=== PATIENT | female | born 1955 | race Caucasian/White ===

== ENCOUNTER 2023-01-05 18:05 | Inpatient (IN) | payer OTHER ==
[2023-01-05] MEDS ORDERED: Dextrose 50% Abboject 50 ML SYRINGE SLOW IVP PRN (18:45)
[2023-01-05] MEDS ORDERED: Sodium Chloride 0.9% 1,000 ML IV SCH (18:45)
[2023-01-05] MEDS ORDERED: Glucagon 1 MG/ML KIT IM PRN (18:45)
[2023-01-05] MEDS ORDERED: HumaLOG 300 UNITS/3 ML VIAL SC PRN (18:45)
[2023-01-05] MEDS ORDERED: Dextrose 5% in Water 1,000 ML IV PRN (18:45)
[2023-01-05] MEDS: Atorvastatin Calcium 40 MG TAB PO SCH (22:16)
[2023-01-05] MEDS ORDERED: FLU VACC QS2023(65UP)/MF59C/PF 60 MCG/0.5 ML SYRINGE IM ONE (23:45)
[2023-01-06 00:26] VITALS: BMI 26.3
[2023-01-06 05:57] LABS: #Basophils 0.1 10x3/uL (0.0-0.2); #Eosinphils 0.1 10x3/uL (0.0-0.5); #Monocytes 0.4 10x3/uL (0.0-1.1); #Neutrophils 3.9 10x3/uL (1.5-8.4); %Basophils 1.2 % (0.0-2.0); %Eosinophils 1.5 % (0.0-6.0); %Lymphocytes 25.7 % (18.0-47.0); %Monocytes 6.4 % (0.0-10.0); %Neutrophils 64.9 % (40.0-75.0); Hematocrit 33.8 % (34.9-44.5); Hemoglobin 11.6 g/dL (12.0-15.5); Mean Corpuscular HGB CONC 34.3 g/dL (32.0-36.0); Mean Corpuscular Hemoglobin 30.3 pg (27.0-33.0); Mean Corpuscular Volume 88.3 fl (81.6-98.3); Platelet Count 256 10x3/uL (150-450); RBC Distribution Width 14.5 % (11.5-14.5); Red Blood Cell (RBC) Count 3.83 10x6/uL (3.90-5.03)
[2023-01-06 06:07] LABS: Anion Gap 12 mmol/L (10-20); BUN (Urea Nitrogen) 5 mg/dL (9.8-20.1); Calc. Creatinine Clearance 102 mL/min (70-130); Calcium 7.7 mg/dL (7.8-10.44); Carbon Dioxide 23 mmol/L (23-31); Chloride 110 mmol/L (98-107); Estimated GFR 99; Glucose 78 mg/dL (80-115); Sodium 142 mmol/L (136-145)
[2023-01-06 06:11] LABS: Potassium 2.5 mmol/L (3.5-5.1)
[2023-01-06] MEDS: cefTRIAXone\\ROCEPHIN 1 GM in Sodium Chloride 0.9% 100 ML IVPB SCH (08:04)
[2023-01-06] MEDS ORDERED: Electrolyte Replacement Protocol 1 EACH FS PRN (08:04)
[2023-01-06] MEDS: Acetaminophen 325 MG TAB PO PRN ×2 (08:30→15:02)
[2023-01-06] MEDS: Clopidogrel Bisulfate 75 MG TAB PO SCH (08:31)
[2023-01-06] MEDS: Aspirin Chewable 81 MG TAB PO SCH (08:31)
[2023-01-06] MEDS: Potassium Chloride 20 MEQ TAB PO SCH ×2 (08:31→15:02)
[2023-01-06] MEDS: Ibuprofen 600 MG TAB PO PRN (11:02)
[2023-01-06 13:11] LABS: Hemoglobin A1c 4.9 % (4.0-6.0)
[2023-01-06] MEDS ORDERED: Lorazepam 0.5 MG TAB PO PRN (14:35)
[2023-01-06] MEDS: metroNIDAZOLE 500 MG TAB PO SCH ×2 (15:03→20:58)
[2023-01-06 18:10] LABS: Magnesium 1.1 mg/dL (1.6-2.6); Potassium 3.4 mmol/L (3.5-5.1)
[2023-01-06] MEDS ORDERED: Potassium Chloride 20 MEQ TAB PO SCH (20:30)
[2023-01-06] MEDS: Atorvastatin Calcium 40 MG TAB PO SCH (20:58)
[2023-01-06] MEDS: Gabapentin 300 MG CAP PO SCH (20:58)
[2023-01-06] MEDS: Magnesium 2 GM/50 ML(in water) 2 GM in Premix 1 BAG IVPB SCH ×2 (20:59→22:30)
[2023-01-07] MEDS: cefTRIAXone\\ROCEPHIN 1 GM in Sodium Chloride 0.9% 100 ML IVPB SCH (06:06)
[2023-01-07 06:09] LABS: #Basophils 0.1 10x3/uL (0.0-0.2); #Eosinphils 0.1 10x3/uL (0.0-0.5); #Monocytes 0.3 10x3/uL (0.0-1.1); #Neutrophils 2.9 10x3/uL (1.5-8.4); %Basophils 1.2 % (0.0-2.0); %Lymphocytes 32.6 % (18.0-47.0); %Monocytes 6.9 % (0.0-10.0); %Neutrophils 58.1 % (40.0-75.0); Hemoglobin 11.7 g/dL (12.0-15.5); Mean Corpuscular HGB CONC 34.4 g/dL (32.0-36.0); Mean Corpuscular Hemoglobin 30.2 pg (27.0-33.0); Mean Corpuscular Volume 87.6 fl (81.6-98.3); Mean Platelet Volume 11.1 fl (7.4-10.4); Platelet Count 254 10x3/uL (150-450); Red Blood Cell (RBC) Count 3.88 10x6/uL (3.90-5.03); White Blood Cell (WBC) Count 4.9 10x3/uL (3.5-10.5)
[2023-01-07 06:21] LABS: Anion Gap 12 mmol/L (10-20); BUN (Urea Nitrogen) Less than 4 mg/dL (9.8-20.1); Calc. Creatinine Clearance 100 mL/min (70-130); Calcium 8.2 mg/dL (7.8-10.44); Carbon Dioxide 23 mmol/L (23-31); Chloride 109 mmol/L (98-107); Estimated GFR 99; Glucose 77 mg/dL (80-115); Magnesium 2.4 mg/dL (1.6-2.6); Phosphorus 2.2 mg/dL (2.3-4.7); Potassium 3.1 mmol/L (3.5-5.1); Sodium 141 mmol/L (136-145)
[2023-01-07] MEDS: Gabapentin 300 MG CAP PO SCH ×2 (08:26→20:56)
[2023-01-07] MEDS: Acetaminophen 325 MG TAB PO PRN ×3 (08:27→20:54)
[2023-01-07] MEDS: Clopidogrel Bisulfate 75 MG TAB PO SCH (08:27)
[2023-01-07] MEDS: metroNIDAZOLE 500 MG TAB PO SCH ×3 (08:28→20:55)
[2023-01-07] MEDS: Aspirin Chewable 81 MG TAB PO SCH (08:28)
[2023-01-07] MEDS: Lorazepam 1 MG TAB PO PRN ×2 (08:28→16:57)
[2023-01-07] MEDS ORDERED: Citalopram 20 MG TAB PO SCH (09:00)
[2023-01-07] MEDS ORDERED: Potassium Chloride 20 MEQ TAB PO SCH ×3 (09:00→21:00)
[2023-01-07] MEDS: Aspirin 81 mg Enteric Coated Tablet PO SCH (13:13)
[2023-01-07 14:14] LABS: Campy jejuni + coli by PCR Negative (Negative); STEC Shiga Toxin 1+2 Negative (Negative); Salmonella spp. by PCR Negative (Negative); Shigella spp + EIEC by PCR Negative (Negative)
[2023-01-07] MEDS ORDERED: Nicotine 21 MG PATCH TOP SCH (18:00)
[2023-01-07 18:35] LABS: Potassium 3.4 mmol/L (3.5-5.1)
[2023-01-07] MEDS: Atorvastatin Calcium 40 MG TAB PO SCH (20:56)
[2023-01-07] MEDS: Nicotine 21 MG PATCH TOP SCH (20:57)
[2023-01-08 05:26] LABS: Magnesium 1.7 mg/dL (1.6-2.6); Potassium 3.6 mmol/L (3.5-5.1)
[2023-01-08] MEDS: cefTRIAXone\\ROCEPHIN 1 GM in Sodium Chloride 0.9% 100 ML IVPB SCH (06:02)
[2023-01-08] MEDS: metroNIDAZOLE 500 MG TAB PO SCH ×3 (08:12→20:57)
[2023-01-08] MEDS: Clopidogrel Bisulfate 75 MG TAB PO SCH (08:12)
[2023-01-08] MEDS: Gabapentin 300 MG CAP PO SCH ×2 (08:13→20:56)
[2023-01-08] MEDS: Acetaminophen 325 MG TAB PO PRN ×2 (08:13→20:57)
[2023-01-08] MEDS: Aspirin Chewable 81 MG TAB PO SCH (08:13)
[2023-01-08] MEDS: Aspirin 81 mg Enteric Coated Tablet PO SCH (08:19)
[2023-01-08] MEDS ORDERED: Loperamide HCl 2 MG CAP PO PRN (08:58)
[2023-01-08] MEDS ORDERED: Magnesium 2 GM/50 ML(in water) 2 GM in Premix 1 BAG IVPB SCH (09:00)
[2023-01-08] MEDS: Lorazepam 1 MG TAB PO PRN ×2 (11:30→15:29)
[2023-01-08] MEDS: Atorvastatin Calcium 40 MG TAB PO SCH (20:56)
[2023-01-08] MEDS: Nicotine 21 MG PATCH TOP SCH (20:57)
[2023-01-09] MEDS: Acetaminophen 325 MG TAB PO PRN ×3 (03:23→15:30)
[2023-01-09] MEDS: Ibuprofen 600 MG TAB PO PRN (06:28)
[2023-01-09] MEDS: cefTRIAXone\\ROCEPHIN 1 GM in Sodium Chloride 0.9% 100 ML IVPB SCH (06:29)
[2023-01-09 06:36] LABS: Magnesium 1.6 mg/dL (1.6-2.6)
[2023-01-09] MEDS: Gabapentin 300 MG CAP PO SCH ×2 (07:56→20:40)
[2023-01-09] MEDS: Saccharomyces boulardii 250 MG CAP PO SCH (07:57)
[2023-01-09] MEDS: Aspirin Chewable 81 MG TAB PO SCH (07:57)
[2023-01-09] MEDS: metroNIDAZOLE 500 MG TAB PO SCH ×3 (07:57→20:40)
[2023-01-09] MEDS: Clopidogrel Bisulfate 75 MG TAB PO SCH (07:57)
[2023-01-09] MEDS: Lorazepam 1 MG TAB PO PRN ×2 (07:57→15:30)
[2023-01-09 08:15] LABS: #Basophils 0.1 10x3/uL (0.0-0.2); #Monocytes 0.3 10x3/uL (0.0-1.1); #Neutrophils 2.3 10x3/uL (1.5-8.4); %Basophils 1.4 % (0.0-2.0); %Eosinophils 0.7 % (0.0-6.0); %Lymphocytes 38.4 % (18.0-47.0); %Monocytes 5.9 % (0.0-10.0); %Neutrophils 53.4 % (40.0-75.0); Hematocrit 36.7 % (34.9-44.5); Hemoglobin 12.4 g/dL (12.0-15.5); Mean Corpuscular HGB CONC 33.8 g/dL (32.0-36.0); Mean Corpuscular Hemoglobin 29.9 pg (27.0-33.0); Mean Corpuscular Volume 88.4 fl (81.6-98.3); Mean Platelet Volume 10.9 fl (7.4-10.4); Platelet Count 249 10x3/uL (150-450); RBC Distribution Width 14.7 % (11.5-14.5); Red Blood Cell (RBC) Count 4.15 10x6/uL (3.90-5.03); White Blood Cell (WBC) Count 4.3 10x3/uL (3.5-10.5)
[2023-01-09 08:30] LABS: Anion Gap 13 mmol/L (10-20); BUN (Urea Nitrogen) Less than 4 mg/dL (9.8-20.1); Calc. Creatinine Clearance 89 mL/min (70-130); Calcium 8.3 mg/dL (7.8-10.44); Carbon Dioxide 25 mmol/L (23-31); Chloride 105 mmol/L (98-107); Estimated GFR 96; Glucose 97 mg/dL (80-115); Potassium 3.3 mmol/L (3.5-5.1); Sodium 140 mmol/L (136-145)
[2023-01-09] MEDS ORDERED: Magnesium 2 GM/50 ML(in water) 2 GM in Premix 1 BAG IVPB SCH (09:00)
[2023-01-09] MEDS ORDERED: Potassium Chloride 20 MEQ TAB PO SCH (09:00)
[2023-01-09] MEDS: Aspirin 81 mg Enteric Coated Tablet PO SCH (09:41)
[2023-01-09] MEDS: Cholestyramine/Aspartame 4 gm Packet PO SCH ×3 (10:25→21:27)
[2023-01-09 14:46] LABS: Potassium 3.4 mmol/L (3.5-5.1)
[2023-01-09] MEDS: Ciprofloxacin 500 MG TAB PO SCH (20:40)
[2023-01-09] MEDS: Atorvastatin Calcium 40 MG TAB PO SCH (20:40)
[2023-01-09] MEDS: Nicotine 21 MG PATCH TOP SCH (20:40)
[2023-01-10 05:20] LABS: Anion Gap 13 mmol/L (10-20); BUN (Urea Nitrogen) 4 mg/dL (9.8-20.1); Calc. Creatinine Clearance 91 mL/min (70-130); Calcium 8.6 mg/dL (7.8-10.44); Carbon Dioxide 23 mmol/L (23-31); Chloride 107 mmol/L (98-107); Estimated GFR 96; Glucose 101 mg/dL (80-115); Magnesium 1.6 mg/dL (1.6-2.6); Potassium 3.4 mmol/L (3.5-5.1); Sodium 140 mmol/L (136-145)
[2023-01-10] MEDS: Acetaminophen 325 MG TAB PO PRN (05:24)
[2023-01-10] MEDS: Ciprofloxacin 500 MG TAB PO SCH ×2 (05:25→20:35)
[2023-01-10 05:27] LABS: #Basophils 0.1 10x3/uL (0.0-0.2); #Eosinphils 0.1 10x3/uL (0.0-0.5); #Monocytes 0.3 10x3/uL (0.0-1.1); #Neutrophils 2.4 10x3/uL (1.5-8.4); %Basophils 1.2 % (0.0-2.0); %Eosinophils 1.4 % (0.0-6.0); %Lymphocytes 34.1 % (18.0-47.0); %Monocytes 6.5 % (0.0-10.0); %Neutrophils 56.6 % (40.0-75.0); Hematocrit 38.3 % (34.9-44.5); Hemoglobin 12.9 g/dL (12.0-15.5); Mean Corpuscular HGB CONC 33.7 g/dL (32.0-36.0); Mean Corpuscular Hemoglobin 29.4 pg (27.0-33.0); Mean Corpuscular Volume 87.2 fl (81.6-98.3); Mean Platelet Volume 10.7 fl (7.4-10.4); Platelet Count 253 10x3/uL (150-450); RBC Distribution Width 14.6 % (11.5-14.5); Red Blood Cell (RBC) Count 4.39 10x6/uL (3.90-5.03); White Blood Cell (WBC) Count 4.3 10x3/uL (3.5-10.5)
[2023-01-10] MEDS: Ibuprofen 600 MG TAB PO PRN (06:46)
[2023-01-10] MEDS ORDERED: Potassium Chloride 20 MEQ TAB PO SCH (08:00)
[2023-01-10] MEDS ORDERED: Ondansetron PF 4 MG/2 ML Vial IVP SCH (08:00)
[2023-01-10] MEDS: Magnesium 2 GM/50 ML BAG (IN WATER) ONE ×2 (08:43→08:52)
[2023-01-10] MEDS: Aspirin Chewable 81 MG TAB PO SCH (08:45)
[2023-01-10] MEDS: Saccharomyces boulardii 250 MG CAP PO SCH (08:45)
[2023-01-10] MEDS: metroNIDAZOLE 500 MG TAB PO SCH ×3 (08:45→20:35)
[2023-01-10] MEDS: Gabapentin 300 MG CAP PO SCH ×2 (08:45→20:35)
[2023-01-10] MEDS: Aspirin 81 mg Enteric Coated Tablet PO SCH (08:46)
[2023-01-10] MEDS: Clopidogrel Bisulfate 75 MG TAB PO SCH (08:46)
[2023-01-10] MEDS ORDERED: Magnesium 2 GM/50 ML(in water) 2 GM in Premix 1 BAG IVPB SCH (09:00)
[2023-01-10] MEDS: Lorazepam 1 MG TAB PO PRN ×2 (09:02→15:38)
[2023-01-10] MEDS: Cholestyramine/Aspartame 4 gm Packet PO SCH ×3 (10:00→21:28)
[2023-01-10] MEDS: Atorvastatin Calcium 40 MG TAB PO SCH (20:35)
[2023-01-10] MEDS: Nicotine 21 MG PATCH TOP SCH (20:39)
[2023-01-11] MEDS ORDERED: Ibuprofen 200 MG TAB PO SCH (00:45)
[2023-01-11] MEDS: Acetaminophen 325 MG TAB PO PRN (04:08)
[2023-01-11 05:57] LABS: #Basophils 0.1 10x3/uL (0.0-0.2); #Eosinphils 0.1 10x3/uL (0.0-0.5); #Monocytes 0.4 10x3/uL (0.0-1.1); #Neutrophils 4.2 10x3/uL (1.5-8.4); %Basophils 0.8 % (0.0-2.0); %Eosinophils 0.8 % (0.0-6.0); %Lymphocytes 25.4 % (18.0-47.0); %Monocytes 6.3 % (0.0-10.0); %Neutrophils 66.4 % (40.0-75.0); Hemoglobin 12.4 g/dL (12.0-15.5); Mean Corpuscular HGB CONC 33.5 g/dL (32.0-36.0); Mean Corpuscular Hemoglobin 29.7 pg (27.0-33.0); Mean Corpuscular Volume 88.5 fl (81.6-98.3); Platelet Count 217 10x3/uL (150-450); RBC Distribution Width 14.6 % (11.5-14.5); Red Blood Cell (RBC) Count 4.18 10x6/uL (3.90-5.03); White Blood Cell (WBC) Count 6.3 10x3/uL (3.5-10.5)
[2023-01-11 06:14] LABS: Anion Gap 9 mmol/L (10-20); BUN (Urea Nitrogen) 6 mg/dL (9.8-20.1); Calc. Creatinine Clearance 73 mL/min (70-130); Calcium 8.5 mg/dL (7.8-10.44); Carbon Dioxide 26 mmol/L (23-31); Chloride 109 mmol/L (98-107); Estimated GFR 80; Glucose 117 mg/dL (80-115); Magnesium 1.8 mg/dL (1.6-2.6); Potassium 4.1 mmol/L (3.5-5.1); Sodium 140 mmol/L (136-145)
[2023-01-11] MEDS: Ciprofloxacin 500 MG TAB PO SCH (06:23)
[2023-01-11] MEDS ORDERED: Magnesium 2 GM/50 ML(in water) 2 GM in Premix 1 BAG IVPB SCH (09:00)
[2023-01-11] MEDS: Gabapentin 300 MG CAP PO SCH (09:29)
[2023-01-11] MEDS: Aspirin 81 mg Enteric Coated Tablet PO SCH (09:29)
[2023-01-11] MEDS: Cholestyramine/Aspartame 4 gm Packet PO SCH (09:29)
[2023-01-11] MEDS: metroNIDAZOLE 500 MG TAB PO SCH (09:29)
[2023-01-11] MEDS: Clopidogrel Bisulfate 75 MG TAB PO SCH (09:30)
[2023-01-11] MEDS: Saccharomyces boulardii 250 MG CAP PO SCH (09:30)
[2023-01-11] MEDS: Aspirin Chewable 81 MG TAB PO SCH (09:30)
[2023-01-11] MEDS: Lorazepam 1 MG TAB PO PRN (09:34)
[2023-01-11 12:31] VITALS: BP 145/82; TEMP 99.2
== END 2023-01-11 13:00 | disposition home or self-care (01) | DRG 871 ==
LOC: CSHTELE 18:05 → INTOOBSV 18:05 → OBSVTOIN 01-07 09:00
PROVIDERS: ADMIT Internal Medicine; ATTEND Family Medicine
DX: A41.52 Sepsis due to Pseudomonas (principal); G93.41 Metabolic encephalopathy; N39.0 Urinary tract infection, site not specified; I50.32 Chronic diastolic (congestive) heart failure; I69.354 Hemiplegia and hemiparesis following cerebral infarction affecting left non-dominant side; R65.20 Severe sepsis without septic shock; E11.9 Type 2 diabetes mellitus without complications; I11.0 Hypertensive heart disease with heart failure; E87.6 Hypokalemia; F17.210 Nicotine dependence, cigarettes, uncomplicated; E03.9 Hypothyroidism, unspecified; E78.5 Hyperlipidemia, unspecified; R19.7 Diarrhea, unspecified; E83.42 Hypomagnesemia; E86.0 Dehydration; I25.10 Atherosclerotic heart disease of native coronary artery without angina pectoris; Z95.5 Presence of coronary angioplasty implant and graft; Z90.49 Acquired absence of other specified parts of digestive tract; Z98.890 Other specified postprocedural states; Z79.51 Long term (current) use of inhaled steroids; Z88.0 Allergy status to penicillin; Z79.899 Other long term (current) drug therapy; Z79.82 Long term (current) use of aspirin; Z79.4 Long term (current) use of insulin; Z79.84 Long term (current) use of oral hypoglycemic drugs
CPT/HCPCS: 36415; 36416; 80048; 83036; 83735; 83880; 84100; 84132; 85025; 87077; 87086; 87186; 87324; 87449; 87505; 96372; 96374; 96375; 96376; G0378; J0696; J1650; J3475; J3490; J7050